=== PATIENT | female | born 1995 | race Caucasian/White ===

== ENCOUNTER 2018-03-24 03:31 | Inpatient (IN) ==
--- NOTE | 2018-03-24 04:20 | ED ---
History of Present Illness Primary Care Physician: NOT REQUIRED care with Dr. Alcantar Chief Complaint: Headache possible leaking fluid History of Present Illness: 22-year-old at 36 weeks final EDC April 21, 2018-presents to OB ED complaining of headache seeing spots in front of her eyes and right upper quadrant pain. Seen at her doctor's office yesterday reports that her BP there was 140s over 90s +1 proteinuria. 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 Allergies denies Medical history denies chronic hypertension Weeks Gestation:: 36 Para: 0 : 2 Review of Systems All other systems reviewed negative except as stated in HPI PMFSH - Tobacco History Smoking Status: Never smoker - Alcohol History How Often Do You Have a Drink Containing Alcohol: Never - Substance Use History Substance History: No History of Abuse Medications and Allergies Allergies Allergy/AdvReac Type Severity Reaction Status Date / Time No Known Allergies Allergy Unknown none Uncoded 03/13/18 20:42 Home Medications Medication Instructions Recorded Confirmed Type [id number] acid 1 tab PO DAILY 03/13/18 03/13/18 History [PreNata] Exam Vital signs: Vital Signs 03/24/18 03:51 03/24/18 04:03 Temperature 98.7 F Respiratory Rate 16 - Constitutional no acute distress - Routine HEENT Exam Head: Present: normocephalic ENT: Present: mucous membranes moist - Routine Chest/Breast/Axilla Exam Chest wall: Absent: tenderness Breast: Absent: tenderness - Routine Respiratory Exam Absent: accessory muscle use - Routine Cardiovascular Exam Present: tachycardia - Routine Abdominal Exam Present: soft (Gravid, heart rate category 2-baseline 160 with accelerations no decelerations), tenderness (Right upper quadrant). Absent: organomegaly - Routine Exam Comments: Cervix closed /20%/ effaced -4 - Routine Extremities Exam Present: edema (+1 pitting distal), full ROM. Absent: tenderness - Routine Neurological Exam Present: alert, oriented X3 (Brisk reflexes no clonus) Assessment and Plan - Diagnosis (1) Pre-eclampsia affecting , antepartum Code(s): O47.9 - False labor, unspecified Status: Acute (2) 36 weeks gestation of Code(s): Z3A.36 - 36 weeks gestation of Status: Acute (3) tachycardia Status: Acute Plan: IV line established-bolus of 500 cc given continue monitor - Plan On examination preeclampsia with severe features noted. Discussed with Dr. Alcantar-plan admission Keep n.p.o., he advised waiting for labs before starting magnesium sulfat Discharge Plan - Discharge Disposition Patient Disposition: ED Admit(ED Internal Use Only) - Discharge Condition Condition: Fair - Physicians Team ED Provider: Mary Griffin Primary Care Provider: NOT REQUIRED, - Rxs /Orders / Referrals /Forms Prescriptions: No Action [id number] acid [PreNata] 29 mg iron- 1 mg Tablet,Chewable 1 tab PO DAILY - Discharge Instructions Print Language: Danish
[2018-03-24] MEDS ORDERED: Naloxone Inj 0.4 MG/ML Vial IV.PUSH PRN ×2 (04:26→09:18)
[2018-03-24] MEDS ORDERED: Oxytocin 30 Units/500ml Premix 30 UNITS/500 ML BAG IV.SIG ONE ×2 (04:26→05:42)
[2018-03-24] MEDS ORDERED: fentaNYL Citrate Inj 100 MCG/2 ML Ampul IV.PUSH PRN ×2 (04:26)
[2018-03-24] MEDS ORDERED: Sod Chloride 0.9% Inj 1,000 ML IV.CONT PRN (04:26)
[2018-03-24] MEDS ORDERED: Penicillin G Potassium Inj 5,000,000 UNIT in Sodium Chloride 0.9% Inj 100 ML IV.SIG ONE (04:26)
[2018-03-24] MEDS ORDERED: Sodium Chlor 0.9% Inj 500 ML IV.SIG PRN (04:26)
[2018-03-24 04:30] LABS: Hemoglobin 9.6 gm/dL (11.6-15.3); Mean Corpuscular HGB Conc 32.1 % (32.0-36.0); Mean Corpuscular Hemoglobin 26.8 pg (27.0-34.0); Mean Corpuscular Volume 83.4 fL (80.0-100.0); Mean Platelet Volume 9.7 fL (7.0-11.0); Platelet Count 219 th/mm3 (150-450); Red Cell Distribution Width 15.5 % (11.6-17.2); White Blood Count 10.7 th/mm3 (4.0-11.0)
[2018-03-24] MEDS ORDERED: Citric Acid/Sodium Citrate Liq 30 ML UDC PO SCH ×2 (04:30→05:30)
--- NOTE | 2018-03-24 04:34 | P.HPOB ---
Patient Name: Maximilian Mccarthy Date of : 89 Patient Status: Emergency Emergency Provider: Mary Griffin Date: 03/24/18 04:15 Initialization Date: 03/24/18 04:15 History of Present Illness Primary Care Physician: NOT REQUIRED care with Dr. Alcantar Chief Complaint: Headache possible leaking fluid History of Present Illness: 22-year-old at 36 weeks final EDC April 21, 2018-presents to OB ED complaining of headache seeing spots in front of her eyes and right upper quadrant pain. Seen at her doctor's office yesterday reports that her BP there was 140s over 90s +1 proteinuria. 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 Allergies denies Medical history denies chronic hypertension Weeks Gestation:: 36 Para: 0 : 2 Review of Systems All other systems reviewed negative except as stated in HPI PMFSH - Tobacco History Smoking Status: Never smoker - Alcohol History How Often Do You Have a Drink Containing Alcohol: Never - Substance Use History Substance History: No History of Abuse Medications and Allergies Allergies Allergy/AdvReac Type Severity Reaction Status Date / Time No Known Allergies Allergy Unknown none Uncoded 03/13/18 20:42 Home Medications Medication Instructions Recorded Confirmed Type [id number] acid 1 tab PO DAILY 03/13/18 03/13/18 History [PreNata] Exam Vital signs: Vital Signs 03/24/18 03:51 03/24/18 04:03 Temperature 98.7 F Respiratory Rate 16 - Constitutional no acute distress - Routine HEENT Exam Head: Present: normocephalic ENT: Present: mucous membranes moist - Routine Chest/Breast/Axilla Exam Chest wall: Absent: tenderness Breast: Absent: tenderness - Routine Respiratory Exam Absent: accessory muscle use - Routine Cardiovascular Exam Present: tachycardia - Routine Abdominal Exam Present: soft (Gravid, heart rate category 2-baseline 160 with accelerations no decelerations), tenderness (Right upper quadrant). Absent: organomegaly - Routine Exam Comments: Cervix closed /20%/ effaced -4 - Routine Extremities Exam Present: edema (+1 pitting distal), full ROM. Absent: tenderness - Routine Neurological Exam Present: alert, oriented X3 (Brisk reflexes no clonus) Assessment and Plan - Diagnosis (1) Pre-eclampsia affecting , antepartum Code(s): O47.9 - False labor, unspecified Status: Acute (2) 36 weeks gestation of Code(s): Z3A.36 - 36 weeks gestation of Status: Acute (3) tachycardia Status: Acute / Maternal tachycardia- Temp 100.6 Plan: IV line established-bolus of 500 cc given continue monitor - Plan On examination preeclampsia with severe features noted. Discussed with Dr. Alcantar-plan admission Keep n.p.o., he advised waiting for labs before starting magnesium sulfat Discharge Plan - Discharge Disposition Patient Disposition: ED Admit(ED Internal Use Only) - Discharge Condition Condition: Fair - Physicians Team ED Provider: Mary Griffin Primary Care Provider: NOT REQUIRED, - Rxs /Orders / Referrals /Forms Prescriptions: No Action [id number] acid [PreNata] 29 mg iron- 1 mg Tablet,Chewable 1 tab PO DAILY - Discharge Instructions Print Language: Stateless
[2018-03-24 04:41] LABS: Amorphous Sediment,Urine Rare /hpf; Bacteria,Urine Occasional /hpf; Bilirubin,Urine Negative (Negative); Clarity,Urine Cloudy (Clear); Color,Urine Yellow (Yellw/Straw); Glucose,Urine (UA) Negative (Negative); Leukocyte Esterase,Urine Large (Negative); Mucus,Urine Few /lpf (Occasional); Nitrite,Urine Negative (Negative); Specific Gravity,Urine 1.019 (1.002-1.035); Squamous Epithelial Cell,Urine 25 /hpf (0-5)
[2018-03-24 04:54] LABS: Total Protein,Urine Random 35.7 mg/dL (0-11.8)
[2018-03-24 04:59] LABS: Alanine Aminotransferase 14 U/L (10-53); Albumin 2.4 g/dL (3.4-5.0); Anion Gap 11 meq/L (5-15); Aspartate Aminotransferase 19 U/L (15-37); Blood Urea Nitrogen 6 mg/dL (7-18); Calcium 8.4 mg/dL (8.5-10.1); Carbon Dioxide 21.1 meq/L (21.0-32.0); Chloride 108 meq/L (98-107); Glomerular Filtration Rate Greater Than 89 mL/min (>89); Glucose,Random 106 mg/dL (74-106); Sodium 140 meq/L (136-145)
[2018-03-24 05:02] LABS: Alkaline Phosphatase 208 U/L (45-117); Total Protein 6.6 g/dL (6.4-8.2)
[2018-03-24 05:02] LABS: Protein/Creatinine Ratio,Urine 0.21 (0.00-0.14)
[2018-03-24] MEDS ORDERED: Simethicone 80 MG Chew Tablet PO PRN (05:42)
[2018-03-24] MEDS ORDERED: Senna/Docusate Sodium 8.6/50 MG Tablet PO PRN (05:42)
[2018-03-24] MEDS ORDERED: Zolpidem Tartrate 5 MG Tablet PO PRN (05:42)
[2018-03-24] MEDS ORDERED: Morphine Sulfate PF Inj 5 MG/10 ML Ampul ONE (05:45)
--- NOTE | 2018-03-24 06:14 | MH ---
cc: Isaias Alcantar MD DATE OF ADMISSION: 03/24/2018 ADMITTING DIAGNOSES: Intrauterine at 36 weeks with severe preeclampsia. HISTORY OF PRESENT ILLNESS: The patient is a 22-year-old white female, para 0-0-1-0, with LMP of 07/14/2017, EDC of 04/21/2018. She has been followed by me throughout the . Her course was benign until she developed a rise in blood pressure about 3 weeks ago, placed on bedrest with good control and normal laboratory testing. She presented for her visit yesterday with a BP of 140/90, upper respiratory infection for the previous 24 hours with congestion and a mild headache. She was continued on bedrest, went home and throughout the evening began to feel more uncomfortable with upper abdominal discomfort, which is kind of in the mid epigastric region and both the right and left upper quadrants. At about 1 a.m. this morning, she awoke with a headache. Home BP was 150/90. She experienced some visual dots and came in for evaluation. Her blood pressure remains elevated in he 150/90 range. Her headache has persisted despite Tylenol taken at home and she still has the congestion with low-grade temperature of 100 from the URI. While here in the labor room, monitoring initially tachycardic, has returned to normal. Her laboratory studies showed normal platelets and LFTs. Urine shows 30 mg of protein. Other pertinent positives include brisk reflexes and 2+ lower extremity edema. She is now admitted for delivery. PAST SURGICAL HISTORY: None. MEDICATIONS: Vitamins. ALLERGIES: NONE. TRANSFUSIONS: None. OBSTETRIC HISTORY: One spontaneous 2017 at 4-5 weeks. No D and C. SOCIAL HISTORY: She is . She is employed. Alcohol, tobacco and drugs are none. PHYSICAL EXAMINATION: GENERAL: A gravid, white female, ill appearing. VITAL SIGNS: BP is 150/90. HEENT: Normal. CHEST: Clear. HEART: Regular rate. BREASTS: Symmetrical. ABDOMEN: Gravid. EFW 3000 grams. Cervix is long, thick and closed and posterior. EXTREMITIES: Show 2+ edema. Reflexes are 2+ and equal. ASSESSMENT: As above. PLAN: I have discussed the diagnosis. Of note, her mother had a similar condition with her second . With her unfavorable cervix, the chance for successful induction would be low. I recommend proceeding with delivery via and the patient agrees to proceed. MD LAMAR Calero/zayra , 05:39 AM , 05:47 AM
[2018-03-24] MEDS ORDERED: Mag Sulf/Water 4 gm/100 ml 100 ML IV.SIG ONE ×2 (07:23→09:15)
[2018-03-24] MEDS ORDERED: Mag Sulf/Water 40 gm/1000 ml 40 GM/1,000 ML BAG IV.CONT ONE (07:23)
--- NOTE | 2018-03-24 10:06 | MP ---
cc: Isaias Alcantar MD DATE OF OPERATION: 03/24/2018 PREOPERATIVE DIAGNOSES: 1. 36 weeks, severe preeclampsia. 2. Upper respiratory infection. POSTOPERATIVE DIAGNOSES: 1. 36 weeks, severe preeclampsia, delivery. 2. Upper respiratory infection. PROCEDURE PERFORMED: Primary low transverse section. ANESTHESIA: Spinal. SURGEON: Isaias Alcantar MD ESTIMATED BLOOD LOSS: 600 mL. FLUIDS: 1.2 crystalloid. OBJECTIVE FINDINGS: Following induction of adequate spinal anesthesia, the patient was prepped and draped supine on the operating table in left lateral tilt position in usual sterile fashion, with the bladder being drained by Crockett catheterization. The abdomen was opened through a Pfannenstiel incision using knife to cut down through the skin to the fascia. The fascia was opened transversely, stripped from the muscles, rectus muscle was split in the midline and the peritoneum opened sharply without incident. The bladder flap was taken down sharply and retracted inferiorly with a Grinnell blade. The lower uterine segment incised transversely with a knife and extended with blunt dissection. There was clear fluid. The baby was in LOT position. The vacuum extractor was applied to the occiput and used to lift the head through the abdominal wound. Mouth was suctioned. The cord clamped and cut, and the baby passed to the awaiting OR team, a viable vigorous male, Apgars 8 and 9, weight 7 pounds 4 ounces. After the cord was clamped and cut, cord blood was collected. Placenta was manually removed. The uterine cavity was cleaned with laps. The uterus was exteriorized and closed in 2 layers with running suture, first with a running locking stitch of 0 Vicryl, second with running imbricating stitch of Vicryl. The posterior inspection of the uterus and tubes were normal. The uterus was placed in the cavity. Irrigation performed. No bleeding was evident and the bladder flap was closed with running stitch of 3-0 Vicryl. All laps and retractors were removed. Counts were correct. The anterior peritoneum was closed with running 2-0 Vicryl, the fascia with a running locking stitch of 0 Vicryl corner to midline and tied, subcutaneous with 3-0 Vicryl and the skin with running subcuticular 3-0 Monocryl. Dermabond applied. Counts were correct. The patient was awakened and taken to the recovery room in good condition. MD LAMAR Calero/cailin , 07:24 AM , 07:29 AM FRIDA
[2018-03-24] MEDS: Mag Sulf/Water 40 gm/1000 ml 40 GM/1,000 ML BAG IV.CONT SCH (10:14)
[2018-03-24] MEDS ORDERED: Oxytocin 30 Units/500ml Premix 30 UNITS/500 ML BAG IV.SIG PRN (10:42)
[2018-03-25 05:42] LABS: Baso % (Auto) 0.1 % (0.0-2.0); Eos # (Auto) 0.1 th/mm3 (0.0-0.4); Eos % (Auto) 0.8 % (0.0-4.0); Hematocrit 25.3 % (35.0-46.0); Hemoglobin 8.5 gm/dL (11.6-15.3); Lymph # (Auto) 1.3 th/mm3 (1.0-4.8); Lymph % (Auto) 14.5 % (9.0-44.0); Mean Corpuscular HGB Conc 33.6 % (32.0-36.0); Mean Corpuscular Hemoglobin 27.9 pg (27.0-34.0); Mean Platelet Volume 9.4 fL (7.0-11.0); Mono # (Auto) 0.9 th/mm3 (0.0-0.9); Mono % (Auto) 10.2 % (0.0-8.0); Neut # (Auto) 6.6 th/mm3 (1.8-7.7); Neut % (Auto) 74.4 % (16.0-70.0); Platelet Count 173 th/mm3 (150-450); Red Blood Count 3.06 mil/mm3 (4.00-5.30); Red Cell Distribution Width 15.8 % (11.6-17.2); White Blood Count 8.9 th/mm3 (4.0-11.0)
[2018-03-25] MEDS: Ketorolac Inj 30 MG/ML (IVP) Vial IV.PUSH PRN ×2 (06:10→13:03)
[2018-03-25] MEDS ORDERED: Diphtheria/Tetanus/Pertussis Vaccine Inj 0.5 ML Syringe IM ONE (16:00)
[2018-03-25] MEDS ORDERED: Measles/Mumps/Rubella Vaccine Inj 0.5 ML Vial SQ ONE (16:00)
[2018-03-25] MEDS: Mag Sulf/Water 40 gm/1000 ml 40 GM/1,000 ML BAG IV.CONT SCH (17:45)
[2018-03-26] MEDS: Ibuprofen 600 MG Tablet PO PRN ×3 (03:01→15:13)
[2018-03-26 08:13] VITALS: RESP 20; TEMP 97.9
[2018-03-26 11:03] VITALS: BP 136/79; PULSE 96
--- NOTE | 2018-03-26 19:28 | MD ---
cc: Isaias Alcantar MD DATE OF DISCHARGE: 03/26/2018 ADMITTING DIAGNOSES: 1. at 36 weeks. 2. Severe preeclampsia. 3. URI. DISCHARGE DIAGNOSES: 1. at 36 weeks. 2. Severe preeclampsia. 3. URI. 4. Delivery. HISTORY OF PRESENT ILLNESS: The patient is a 22-year-old white female, para 0-0-1-0, with an LMP 07/14/2017, EDC of 04/21/2018. Her course was benign until about 3 weeks prior delivery, she had a rise in blood pressure controlled with bed rest. Laboratory testing was normal. She had an increase in pressure on 03/23/2018, later that evening began to have headaches and upper abdominal pain and some intermittent flashing dots in front of her eyes. She came into the OB ED on the morning of 03/24/2018 and had all these symptoms with 2+ edema and brisk reflexes. Her labs were normal, but her blood pressure was in the 150/90 range. Due to the severe preeclampsia and favorable cervix, she underwent a primary low transverse section on the morning of 03/24/2018 with delivery of viable vigorous male, Apgars 8 and 9, weight 7 pounds 4 ounces. , she had magnesium sulfate for 24 hours and did well. Her pressure rapidly normalized and she felt so good, she requested discharge on the second postop day. Baby is named Sean Brock. She is . Her blood type is positive. Her flu swabs were negative. She was advised NPV, light activity, no driving, return to see 1 week. She was carefully instructed in wound symptoms and care. She was given a prescription for Percocet 5 one p.o. every 4 hours p.r.n. pain, number 20. MD LAMAR Calero/alfredo , 05:50 PM , 05:58 PM
== END 2018-03-26 18:31 | disposition home or self-care (01) ==
LOC: HOBED 03:31 → H2E 04:32 → H1EA 03-25 09:06
PROVIDERS: ADMIT Obstetrics & Gynecology; ATTEND Obstetrics & Gynecology